=== PATIENT | male | born 1985 | race Caucasian/White ===

== ENCOUNTER 2021-10-09 07:36 | Emergency (ER) | payer MEDICAID ==
[~2021-10-09 07:36] MED LIST: ANTIVERT 12.512.5 MG PO; OMEPRAZOLE40 MG PO; OTC LAXATIVE PO; VALACYCLOVIR1000 MG PO
[2021-10-09 08:34] LABS: HEMOGLOBIN 15.8 gm/dl (14.0-17.5); RED BLOOD COUNT 5.3 M/UL (4.20-5.50); WHITE BLOOD COUNT 6.8 K/UL (4.5-11.0)
[2021-10-09 09:21] LABS: BUN/CREATININE RATIO 16 (0-10)
[2021-10-09] MEDS ORDERED: ZOFRAN 4 MG TAB4 MG PO (10:23)
== END 2021-10-09 11:24 | disposition home or self-care (01) ==
LOC: ER1 07:36
PROVIDERS: Emergency Medicine
DX: R10.9 Unspecified abdominal pain (principal); R19.7 Diarrhea, unspecified; R11.10 Vomiting, unspecified; R10.817 Generalized abdominal tenderness; Z20.822 Contact with and (suspected) exposure to COVID-19; Z90.49 Acquired absence of other specified parts of digestive tract
CPT/HCPCS: 80053; 81001; 82550; 82553; 83605; 83690; 83874; 84484; 85025; 87040; 93005; 96374; 96375; 99285; J2270; J2405; U0002